=== PATIENT | female | born 1960 | race Two or more races ===

== ENCOUNTER 2021-09-10 07:47 | Outpatient (REF) | payer MEDICARE, SELFPAY ==
--- NOTE | ~2021-09-10 | US_ITS ---
EXAMINATION: US RETROPERITONEAL LIMITED (RENAL ONLY) CLINICAL INFORMATION: Calculus of kidney. COMPARISON: Renal ultrasound 02/13/2020 and 06/12/2019. KUB 01/27/2017 and 01/20/2017. CT abdomen and pelvis 01/22/2015. TECHNIQUE: Real-time imaging of the kidneys. FINDINGS: RIGHT KIDNEY: 9.7 x 5.1 x 5.5 cm (SAG x AP x TRV). The kidney is normal in size, contour, and echogenicity. Renal cortical thickness is normal. No renal calculi or hydronephrosis. There is a 0.8 x 0.6 x 0.9 cm simple appearing cyst in the lower pole not requiring further workup. LEFT KIDNEY: 8.7 x 3.2 x 3.6 cm (SAG x AP x TRV). There appears to be some degree of atrophy and cortical thinning of the left kidney. No calculi or focal parenchymal lesions. No hydronephrosis. US/US renal BI IMPRESSION: The left kidney appears atrophic with questionable cortical thinning, which could be seen with chronic underlying renal medical disease or sequela of a prior injury (infectious, inflammatory or traumatic in etiology). This is more apparent than when compared to studies from 2019. Correlate with renal function tests and if indicated consider further evaluation with a CT of the abdomen. No hydronephrosis. No nephrolithiasis.
== END 2021-09-10 07:48 | disposition home or self-care (01) ==
LOC: HO.US 07:47
PROVIDERS: PCP Internal Medicine; Visit Provider Urology
DX: N20.0 Calculus of kidney (principal)
CPT/HCPCS: 76775

== ENCOUNTER → 2021-10-07 15:03 | Outpatient (BNVA) | payer MEDICARE, SELFPAY | PROVIDERS: PCP Internal Medicine | DX: N31.9 Neuromuscular dysfunction of bladder, unspecified (principal); N20.0 Calculus of kidney | CPT/HCPCS: 99212 ==

== ENCOUNTER 2021-12-18 08:55 | Outpatient (REF) | payer MEDICARE, SELFPAY ==
--- NOTE | ~2021-12-18 | US_ITS ---
EXAMINATION: US RETROPERITONEAL COMPLETE (RENAL) CLINICAL INFORMATION: History of calculus of kidney. COMPARISON: Renal ultrasound 09/10/2021 and 02/13/2020. X-ray KUB 01/27/2017 and 01/20/2017. CT abdomen and pelvis 01/22/2015. TECHNIQUE: Real-time imaging of the kidneys and bladder. FINDINGS: RIGHT KIDNEY: 10.3 x 5.6 x 5.3 cm (SAG x AP x TRV). The kidney is normal in size, contour, and echogenicity. . There is a right renal cortical thinning or scarring. There is a small cyst in the lateral lower pole measuring 1 cm.. No renal calculi or hydronephrosis. LEFT KIDNEY: 7.1 x 4.1 x 3.9 cm (SAG x AP x TRV). The left kidney appears atrophic. No calculi or focal parenchymal lesions. No hydronephrosis. BLADDER: The bladder wall appears thickened and trabeculated. There is hypoechoic soft tissue at the base of the bladder measuring 1.9 x 0.8 x 2 cm questionable for dependent debris versus mass or focal wall thickening. Bilateral ureteral jets are not demonstrated. Prevoid bladder volume is 146 mL. Postvoid bladder volume is 1.6 mL. US/US retroperitoneal comp IMPRESSION: Right renal cortical thinning or scarring. Small right renal cyst. Atrophic-appearing left kidney. No stone seen. Thickened trabeculated bladder wall. 1.9 x 0.8 x 2 cm hypoechoic area dependently at the base of the bladder questionable for debris versus focal wall thickening or mass. No post void bladder residual.
== END 2021-12-18 08:56 | disposition home or self-care (01) ==
LOC: HO.US 08:55
PROVIDERS: PCP Internal Medicine; Visit Provider Urology
DX: N20.0 Calculus of kidney (principal)
CPT/HCPCS: 76770

== ENCOUNTER → 2022-01-02 08:54 | Outpatient (BNVA) | payer MEDICARE, SELFPAY | PROVIDERS: PCP Internal Medicine | DX: Z13.89 Encounter for screening for other disorder (principal) | CPT/HCPCS: Q3014 ==

== ENCOUNTER 2022-05-13 12:12 | Outpatient (REF) | payer MEDICARE, SELFPAY ==
--- NOTE | ~2022-05-13 | US_ITS ---
EXAMINATION: US RETROPERITONEAL LIMITED (RENAL ONLY) CLINICAL INFORMATION: Neuromuscular dysfunction of bladder, unspecified. COMPARISON: US retroperitoneal complete (renal) 12/18/2021. US retroperitoneal limited (renal only) 09/10/2021. XR abdomen KUB 01/27/2017 and 01/20/2017. CT abdomen and pelvis without contrast 01/22/2015. TECHNIQUE: Real-time imaging of the kidneys. FINDINGS: RIGHT KIDNEY: 9.8 x 5.8 x 5.0 cm (SAG x AP x TRV). Lobulated contour with probable midpole cortical scarring. No renal calculi or hydronephrosis. Lower pole cyst measures 0.2 x 0.8 x 1.0 cm. LEFT KIDNEY: 7.7 x 3.6 x 3.6 cm (SAG x AP x TRV). Abnormal contour. Limited visualization cannot exclude underlying parenchymal lesion. No calculi. No hydronephrosis. US/US renal BI IMPRESSION: Limited evaluation of the left kidney. Underlying parenchymal lesion cannot be excluded. Advise correlation with renal mass protocol CT or MRI. Stable appearance of the right kidney.
== END 2022-05-13 12:13 | disposition home or self-care (01) ==
LOC: HO.US 12:12
DX: N20.0 Calculus of kidney (principal); N31.9 Neuromuscular dysfunction of bladder, unspecified
CPT/HCPCS: 76775

== ENCOUNTER → 2022-05-20 13:28 | Outpatient (BNVA) | payer MEDICARE, SELFPAY | PROVIDERS: PCP Internal Medicine; Visit Provider Urology | DX: N31.9 Neuromuscular dysfunction of bladder, unspecified (principal); N20.0 Calculus of kidney | CPT/HCPCS: Q3014 ==

== ENCOUNTER 2022-06-05 12:07 | Outpatient (REF) | payer OTHER, SELFPAY ==
[2022-06-05 14:18] LABS: Appearance Urine HAZY; Color Urine YELLOW; Glucose Urine UA NEG (NEG); Leukocyte Esterase Urine 1+ (NEG); Nitrite Urine POS (NEG); PH 6.5 (5.0-8.0); Specific Gravity - Urine 1.015 (1.005-1.025); Urine Blood TRACE (NEG); Urine Ketones NEG (NEG); Urine Protein 1+ MG/DL (NEG-TRACE)
[2022-06-05 14:38] LABS: Bacteria Urine 3+ /LPF; RBC Urine 0-2 /HPF (0); Squamous Epithelial Cell Urine TRACE /LPF
== END 2022-06-05 12:08 | disposition home or self-care (01) ==
LOC: HO.LAB 12:07
PROVIDERS: PCP Internal Medicine; Visit Provider Urology
DX: N31.9 Neuromuscular dysfunction of bladder, unspecified (principal)
CPT/HCPCS: 81001; 87086; 87088; 87186

== ENCOUNTER 2022-06-12 12:18 | Outpatient (REF) | payer OTHER, SELFPAY ==
[2022-06-12 12:42] LABS: MANUAL DIFF FLAG NO
[2022-06-12 13:47] LABS: Basophils Percent Auto 0.4 % (0-2); Eosinophils Absolute Auto 0.1 X10*3/uL (0.0-0.4); Eosinophils Percent Auto 2.3 % (0-4); Hematocrit 35.1 % (37.0-47.0); Lymphocytes Absolute Auto 0.9 X10*3/uL (1.2-4.9); Mean Corpuscular HGB Conc 31.3 g/dl (31.0-35.0); Mean Corpuscular Hemoglobin 26.6 pg (27.0-33.0); Mean Platelet Volume 10.8 fL (9.4-12.3); Monocytes Absolute Auto 0.4 X10*3/uL (0.1-1.2); Monocytes Percent Auto 14.7 % (2-11); Neutrophils Absolute Auto 1.3 x10*3/uL (2.0-8.3); Neutrophils Percent Auto 47.6 % (45-73); Platelet Count 174 X10*3/uL (160-400); Red Blood Count 4.13 X10*6/uL (4.20-5.50); Red Cell Distribution Width 13.4 % (11.0-16.0); White Blood Count 2.7 X10*3/uL (4.8-10.8)
[2022-06-12 13:58] LABS: Appearance Urine HAZY; Color Urine YELLOW; Glucose Urine UA NEG (NEG); Leukocyte Esterase Urine 1+ (NEG); Nitrite Urine NEG (NEG); PH 6.5 (5.0-8.0); Urine Blood NEG (NEG); Urine Ketones NEG (NEG); Urine Protein 1+ MG/DL (NEG-TRACE)
[2022-06-12 14:17] LABS: Anion Gap 12 (12-20); Blood Urea Nitrogen 11 mg/dL (9-16); Calcium 8.5 mg/dL (8.4-10.2); Carbon Dioxide 24 mmol/L (22-29); Chloride 107 mmol/L (96-108); Estimated Glomerular Filt Rate > 60; Potassium 3.7 mmol/L (3.3-5.1); Sodium 139 mmol/L (135-145)
[2022-06-12 14:19] LABS: Squamous Epithelial Cell Urine 1+ /LPF
[2022-06-12 14:20] LABS: Bacteria Urine 1+ /LPF
[2022-06-12 14:31] LABS: Creatinine Urine 39.21 mg/dL; Microalbum/Creatinine Ratio Ur 377.4 ug/mg cr; Total Protein Urine Random 39 mg/dL (<12)
== END 2022-06-12 12:19 | disposition home or self-care (01) ==
LOC: HO.LAB 12:18
PROVIDERS: PCP Internal Medicine; Visit Provider Internal Medicine Nephrology
DX: I10 Essential (primary) hypertension (principal); Z87.442 Personal history of urinary calculi
CPT/HCPCS: 36415; 80051; 81001; 82043; 82310; 82565; 84156; 84520; 85025; 87086

== ENCOUNTER 2022-06-29 12:30 | Outpatient (REF) | payer OTHER, SELFPAY ==
[2022-06-23 16:24] VITALS: BMI 29.6
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
[2022-06-29] MEDS: levoFLOXacin 500 MG TABLET PO (13:16)
[2022-06-29 13:19] VITALS: BP 136/87; PULSE 100; RESP 18; TEMP 36.6; O2SAT 100
--- NOTE | 2022-06-29 14:16 | PC.NURSE ---
correction to documentation in pre-op checklist. patient is a parapalegic, not a quadrapalegic.
--- NOTE | 2022-06-29 14:57 | PC.NURSE ---
Pt stated that shes not want to continue to wait for procedure. Pt belongings returned. Pt left in W/C with [employer]UMENT [employer]. AMA paperwork signed
== END 2022-06-29 12:31 | disposition home or self-care (01) ==
LOC: HO.SSS 12:30
PROVIDERS: Visit Provider Urology
DX: N31.9 Neuromuscular dysfunction of bladder, unspecified (principal); Z53.29 Procedure and treatment not carried out because of patient's decision for other reasons
CPT/HCPCS: J2795